=== PATIENT | female | born 1990 | race American Indian/Alaskan Native ===

== ENCOUNTER 2016-08-21 15:51 | Emergency (ER) | payer MEDICAID ==
[2016-08-21 16:29] VITALS: BP 111/60
--- NOTE | 2016-08-21 19:37 | Emergency Department Report ---
ED General Adult HPI - General Chief complaint: Skin Rash Stated complaint: ABD RASH,27 WKS Time Seen by Provider: 08/21/16 18:33 Source: patient Mode of arrival: Ambulatory Limitations: No Limitations - History of Present Illness Initial comments: PT c/o rash to abd. Pt states she has had the rash for one week. PT states she has not tried anything for the rash because she is 27 weeks . PT is a pt of [facility]. PT states she has an appointment on Tuesday. PT states she is not having any pain. PT states she has not had close contacts with rash. PT states the rash itches. PT states she is having good movement. MD Complaint: rash Onset/Timin -: Gradual, week(s) Location: abdomen Severity scale (0 -10): 0 Consistency: constant (itchy ) Improves with: none Worsens with: none Associated Symptoms: denies other symptoms. denies: fever/chills, nausea/ vomiting Treatments Prior to Arrival: none - Related Data Previous Rx's Medication Instructions Recorded Last Taken Type hydrOXYzine PAMOATE [Vistaril] 25 mg PO BID PRN #12 capsule 08/21/16 Unknown Rx Allergies Allergy/AdvReac Type Severity Reaction Status Date / Time latex Allergy Unknown Verified 08/21/16 16:29 scallops Allergy Unknown Verified 08/21/16 16:29 ED Review of Systems ROS: Stated complaint: ABD RASH,27 WKS Other details as noted in HPI Comment: All other systems reviewed and negative Constitutional: denies: chills, fever Gastrointestinal: denies: abdominal pain, nausea, vomiting Genitourinary: other (denies bleeding, good movement ) Musculoskeletal: denies: back pain ED Past Medical Hx - Past Medical History Hx Asthma: Yes - Surgical History Past Surgical History?: No - Social History Smoking Status: Never Smoker Substance Use Type: None - Medications Home Medications: Home Medications Medication Instructions Recorded Confirmed Last Taken Type hydrOXYzine PAMOATE [Vistaril] 25 mg PO BID PRN #12 capsule 08/21/16 Unknown Rx ED Physical Exam - General Limitations: No Limitations General appearance: alert, in no apparent distress - Head Head exam: Present: atraumatic, normocephalic, normal inspection - Eye Eye exam: Present: normal appearance. Absent: conjunctival injection - ENT ENT exam: Present: normal exam, normal external ear exam - Neck Neck exam: Present: normal inspection, full ROM - Respiratory Respiratory exam: Present: normal lung sounds bilaterally. Absent: chest wall tenderness - Cardiovascular Cardiovascular Exam: Present: regular rate, normal rhythm - GI/Abdominal GI/Abdominal exam: Present: soft, other (gravid ). Absent: tenderness - Extremities Exam Extremities exam: Present: normal inspection, normal capillary refill - Back Exam Back exam: Present: normal inspection, full ROM. Absent: rash noted - Neurological Exam Neurological exam: Present: alert, oriented X3 - Psychiatric Psychiatric exam: Present: normal affect, normal mood - Skin Skin exam: Present: warm, dry, intact, rash (papular rash to upper abd, no vesicles noted ) ED Course Vital Signs 08/21/16 16:27 Temperature 98.4 F Pulse Rate 67 Respiratory 16 Rate Blood Pressure 111/60 O2 Sat by Pulse 100 Oximetry - Reevaluation(s) Reevaluation #1: 08/21/16 20:02 PT aware of plan of care. Reevaluation #2: 08/21/16 21:21 PT aware of lab results. 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 PT aware she can use OTC calamine lotion. PT has no questions at this time. - Consultations Consultation #1: 08/21/16 19:40 PT was also seen by [facility] consulted Consultation #2: 08/21/16 20:01 Dr Batista aware of pt and requesting CMP and to be notified if LFTs elevated, if not dc home with Vistaril bid prn itching. and otc calamine lotion - Pulse Oximetry Interpretation Digit-Finger Initial Pulse Oximetry Readin Actions Taken: none ED Medical Decision Making - Lab Data Result diagrams: 08/21/16 20:42 - Differential Diagnosis contact dermatitis, folliculitis, PUPPS Critical Care Time: No Critical care attestation.: If time is entered above; I have spent that time in minutes in the direct care of this critically ill patient, excluding procedure time. ED Disposition Clinical Impression: Contact dermatitis Qualifiers: Contact dermatitis type: unspecified Contact dermatitis trigger: unspecified trigger Qualified Code(s): L25.9 - Unspecified contact dermatitis, unspecified cause Disposition: DISCHARGED TO HOME OR SELFCARE Is pt being admited?: No Does the pt Need Aspirin: No Condition: Stable Instructions: Contact Dermatitis (ED), Low Fat Diet (ED), Acute Rash (ED) Additional Instructions: No driving or ETOH after taking Vistaril Keep your OB/ RESEARCH AND EVALUATION ANALYST appointment on Tuesday OTC Calamine lotion as needed for itching Low fat diet, eat small frequent meals Prescriptions: hydrOXYzine PAMOATE [Vistaril] 25 mg PO BID PRN #12 capsule PRN Reason: Itching Referrals: MATTHEW CASTELLON [Other] - 3-5 Days Forms: Work/School Release Form(ED) Time of Disposition: 21:26
[2016-08-21 21:14] LABS: Alanine Aminotransferase 20 units/L (7-56); Albumin 3.3 g/dL (3.9-5); Albumin/Globulin Ratio 1.1 %; Alkaline Phosphatase 48 units/L (35-129); Anion Gap 15 mmol/L; Blood Urea Nitrogen 6 mg/dL (7-17); Calcium 8.8 mg/dL (8.4-10.2); Carbon Dioxide 23 mmol/L (22-30); Chloride 104.3 mmol/L (98-107); Glucose 77 mg/dL (65-100); Sodium 138 mmol/L (137-145); Total Protein 6.2 g/dL (6.3-8.2)
== END 2016-08-21 21:35 | disposition home or self-care (01) ==
LOC: ED 15:51
DX: O26.892 Other specified pregnancy related conditions, second trimester (principal); L25.9 Unspecified contact dermatitis, unspecified cause; J45.909 Unspecified asthma, uncomplicated; Z3A.27 27 weeks gestation of pregnancy; Z91.040 Latex allergy status; Z91.013 Allergy to seafood
CPT/HCPCS: 36415; 80053; 99283